=== PATIENT | female | born 1985 | race Caucasian/White ===

== ENCOUNTER 2019-10-28 11:00 | Outpatient (CLI) | payer MEDICAID ==
[2015-12-09 07:28] VITALS: BMI 17.7
[~2019-10-28 11:00] MED LIST: HYDROCODONE-APA1 TAB PO; MULTIPLE VITAMI1 TA1 PO; ORTHO TRI-7 DAYSX 3 PO; POTASSIUM99 M1 PO
== END 2019-10-28 11:15 | disposition home or self-care (01) ==
LOC: D.MAMMO 11:00
PROVIDERS: ATTEND Student in an Organized Health Care Education/Training Program
DX: N63.21 Unspecified lump in the left breast, upper outer quadrant (principal)